=== PATIENT | male | born 1940 | race Caucasian/White ===

== ENCOUNTER → 2016-07-22 | Outpatient (CLI) | payer MEDICARE ==
[~2016-07-22] MED LIST: 24 HOUR ALLER15.8 ML; ADVAIR 5001 DISK W/2 IH; ALBUTEROL17 GM INH; ASPIRIN81 MG PO; FISH OIL 1,0001 CA2 PO; FLOMAX0.4 M1; FLOVENT7.9 GM INH; FOLIC ACID PO; LASIX20 MG PO; LEVAQUIN PO; METOPROLOL SUCC50 MG PO; POTASSIUM CHLO10 MEQ; PROMETHAZINE W118 M1 PO; SINGULAIR PO; SPIRIVA18 MCG INH; VITAMIN B 12 PO; ZYRTEC10 M1 PO
--- NOTE | ~2016-07-22 | MR2 ---
[facility] A Service of [facility] RADIOLOGY TEXT RESULTS PATIENT: MYLES BABCOCK LOCATION: [facility] : 38 UNIT #: [id number] AGE: [address]: MARIE MORGAN MD (INT MED) SEX: M ORDER DR: [id number] [facility] [address] [place], [place] [address] [id number] O MR#: [id number] Acc #: [id number] NAME: MYLES BABCOCK. : 1940 SEX: M STUDY DATE/TIME: 07/22/2016 13:34 UNIT: [facility] ROOM: STUDY DESCRIPTION: MR Abdomen WWo Cont Attending Physician: Marie Morgan M.D. Referring Physician: Marie Morgan M.D. Ordering Physician: Marie Morgan M.D. Primary Care Physician: Marie Morgan M.D. MRI CENTER REPORT This report is preliminary unless electronic signature is present. EXAM MRI abdomen INDICATIONS Renal cyst. Geographic hepatic steatosis. Right adrenal adenoma. TECHNIQUE Multiplanar MRI of the abdomen with and without IV contrast (19 mL MultiHance IV contrast). FINDINGS There is a small right adrenal adenoma. Patient has geographic hepatic steatosis. There are a few small cysts in the kidneys. The largest cyst measures 3.4 cm. No suspicious renal lesions. No hydronephrosis. The kidneys are small and atrophic. The bowel is not dilated. The abdominal aorta is normal in caliber. IMPRESSION 1. There is benign bilateral renal cysts. There is mild bilateral renal cortical atrophy. 2. Geographic hepatic steatosis. 3. Benign right adrenal adenoma. Dictated by... Lalo Arora M.D. THIS IS AN ELECTRONICALLY VERIFIED REPORT Lalo Arora M.D. at 07/23/2016 8:03 PM RPC/rnr TD: 07/23/2016 16:56 JOB #: [id number] [facility] A Service of [facility] RADIOLOGY TEXT RESULTS PATIENT: MYLES BABCOCK LOCATION: CM[facility] : 38 UNIT #: [id number] AGE: [address]: MARIE MORGAN MD (INT MED) SEX: M ORDER DR: MRI CENTER REPORT Page 1 of 1 COPY
[2016-07-22 13:30] LABS: POC - CREATININE 0.98 mg/dL (0.64-1.27); POC - GFR >60.0 mL/min (>60)
== END | disposition home or self-care (01) ==
LOC: CMRI 12:51
PROVIDERS: Internal Medicine
DX: D35.01 Benign neoplasm of right adrenal gland (principal); N28.1 Cyst of kidney, acquired; N26.1 Atrophy of kidney (terminal); K76.0 Fatty (change of) liver, not elsewhere classified
CPT/HCPCS: 74183; 82565; A9577